=== PATIENT | female | born 1985 | race Two or more races ===

== ENCOUNTER 2025-05-17 13:00 | Inpatient (IN) | payer OTHER ==
[~2025-05-17] VITALS: Ht 165.1 cm; Wt 88.5 kg
[2025-05-28] VITALS (9 sets, daily range): BP systolic 112–142; BP diastolic 59–77
[2025-05-28] MEDS ORDERED: RINGERS SOLUTION,LACTATED 1,000 ML IV SCH (12:00)
[2025-05-28] MEDS ORDERED: OXYTOCIN 500 ML IV ONE (12:00)
[2025-05-28 13:04] LABS: BASO % 0.4 % (0.1-1.2); EOS # 0.03 (0.04-0.54); EOS % 0.4 % (0.7-7.0); LYMPH # 1.50 (1.18-3.74); LYMPH % 18.8 % (19.3-53.1); MEAN PLATELET VOLUME 12.80 fl (9.4-12.4); MONO # 0.69 (0.24-0.82); MONO % 8.7 % (4.7-12.5); NEUT # 5.67 (1.56-6.13); NEUT % 71.1 % (34.0-71.1); RED CELL DISTRIBUTION WIDTH 14.6 % (11.6-14.4)
[2025-05-28 13:21] LABS: INR < 0.93
[2025-05-28] MEDS ORDERED: MORPHINE SULFATE 4 MG/ML CARTRIDGE IV STA (14:43)
[2025-05-28] MEDS ORDERED: MORPHINE SULFATE 2 MG/ML SYRINGE IV STA (16:19)
[2025-05-28] MEDS ORDERED: ACETAMINOPHEN WITH CODEINE 1 UDTAB TABLET PO PRN (22:00)
[2025-05-28] MEDS ORDERED: OXYTOCIN 1,000 ML IV SCH (22:00)
[2025-05-28] MEDS ORDERED: ERYTHROMYCIN BASE OPHT 1GM EACH TUBE OP ONE (22:45)
[2025-05-28] MEDS ORDERED: NALOXONE HCL 0.4 MG/ML AMPUL IM ONE (22:45)
[2025-05-28] MEDS ORDERED: LIDOCAINE HCL 1% 10ML VIAL IJ ONE (22:45)
[2025-05-28] MEDS ORDERED: CHLORHEXIDINE GLUCONATE 120 ML BOTTLE TOP ONE (22:45)
[2025-05-29 03:18] VITALS: BP 113/70
[2025-05-29 08:29] VITALS: BP 115/72
[2025-05-29 16:38] VITALS: BP 118/67
[2025-05-30 00:32] VITALS: BP 114/71
[2025-05-30 08:00] VITALS: BP 139/80
== END 2025-05-30 15:00 | disposition home or self-care (01) | DRG 807 ==
LOC: LDR 05-28 11:37 → OB/GYN 05-28 12:32 → LDR 05-28 12:42 → OB/GYN 05-28 13:00 → LDR 05-29 00:53 → OB/GYN 05-29 02:20
PROVIDERS: Obstetrics & Gynecology; ADMIT Obstetrics & Gynecology Maternal & Fetal Medicine; ATTEND Obstetrics & Gynecology Maternal & Fetal Medicine
PROC: 10E0XZZ Delivery of Products of Conception, External Approach (ICD-10-PCS; principal; 2025-05-28)
PROC: 0KQM0ZZ Repair Perineum Muscle, Open Approach (ICD-10-PCS; 2025-05-28)
PROC: 4A1HXCZ Monitoring of Products of Conception, Cardiac Rate, External Approach (ICD-10-PCS; 2025-05-28)
DX: O70.1 Second degree perineal laceration during delivery (principal); Z37.0 Single live birth; O69.81X0 Labor and delivery complicated by cord around neck, without compression, not applicable or unspecified; Z3A.40 40 weeks gestation of pregnancy

== ENCOUNTER 2025-05-27 11:19 | Outpatient (CLI) | payer OTHER | END 2025-05-27 11:58 | disposition home or self-care (01) | LOC: NST 11:19 | PROVIDERS: ATTEND Obstetrics & Gynecology | DX: Z34.83 Encounter for supervision of other normal pregnancy, third trimester (principal) ==